=== PATIENT | male | born 1950 | race Caucasian/White ===

== ENCOUNTER 2016-06-06 01:03 | Emergency (ER) | payer BC, OTHER ==
[~2016-06-06] VITALS: Ht 188 cm; Wt 115.0 kg
[~2016-06-06 01:03] MED LIST: PRIN20TA2 PO; ZOCO10TA PO
[2016-06-06 01:10] VITALS: BP 178/89; PULSE 89; RESP 16; TEMP 98.2; O2SAT 96
[2016-06-06] MEDS ORDERED: LISI-590 PO (01:26)
[2016-06-06] MEDS ORDERED: ATEN50TA PO (01:26)
[2016-06-06] MEDS ORDERED: ASPIRIN 81 MG CHEW TAB PO ONE (01:30)
[2016-06-06] MEDS ORDERED: SODIUM CHLORIDE 0.9% FLUSH 5 ML FLUSH IVF PRN (01:30)
[2016-06-06 01:31] LABS: BASOPHIL # 0.4 TH/MM3 (0-0.2); BASOPHIL % 3.3 % (0.0-2.0); EOSINOPHIL # 0.2 TH/MM3 (0-0.4); EOSINOPHIL % 1.3 % (0.0-4.0); HEMATOCRIT 48.6 % (39.0-51.0); LYMPH % 15.3 % (9.0-44.0); MEAN CELL VOLUME 91.6 FL (80.0-100.0); MEAN CORPUSCULAR HEMOGLOBIN 30.3 PG (27.0-34.0); MEAN CORPUSCULAR HGB CONC 33.1 % (32.0-36.0); MONO % 10.1 % (0.0-8.0); PLATELET COUNT 166 TH/MM3 (150-450); RED CELL DISTRIBUTION WIDTH 13.3 % (11.6-17.2); WHITE BLOOD COUNT 12.9 TH/MM3 (4.0-11.0)
[2016-06-06 01:39] LABS: HEMO FLAGS DIFF FINAL
--- NOTE | 2016-06-06 01:40 | PD ---
HPI Chief Complaint: Chest Pain Time Seen by Provider: 01:13 Travel History International Travel<30 days: No Contact w/Intl Traveler<30days: No Traveled to known affect area: No History of Present Illness HPI The patient is a 66-year-old male with no known history of heart disease who complains of a sharp, pleuritic chest pain in the last 27 hours. The pain is located in the left anterior chest wall area. The pain is pleuritic, positional. He denies any fever, nausea, short of breath, diaphoresis or radiation of pain. He denies any hemoptysis. PFS Past Medical History High Cholesterol: Yes Diminished Hearing: No Hypertension: Yes ?: Not Past Surgical History Appendectomy: Yes Social History Alcohol Use: Yes Tobacco Use: No Substance Use: No Allergies-Medications (Allergen,Severity, Reaction): Coded Allergies: Augmentin (Verified Adverse Reaction, Mild, DIARRHEA, 09/05/11) Reported Meds & Prescriptions Reported Meds & Active Scripts Active Ibuprofen 800 Mg Tab 800 Mg PO TID Reported Zestril (Lisinopril) 10 Mg Tab 10 Mg PO DAILY Atenolol 50 Mg Tab 50 Mg PO BID Review of Systems Except as stated in HPI: all other systems reviewed are Neg Physical Exam Narrative GENERAL: The patient is alert, oriented 3 and slight apparent distress with his sharp, pleuritic chest pain. The blood pressure is 178/89 but the rest the vital signs are normal. SKIN: Warm and dry. No skin rash is noted. HEAD: Atraumatic. Normocephalic. EYES: Pupils equal and round. No scleral icterus. No injection or drainage. ENT: No nasal bleeding or discharge. Mucous membranes pink and moist. NECK: Trachea midline. No JVD. CARDIOVASCULAR: Regular rate and rhythm. No murmur appreciated. RESPIRATORY: No accessory muscle use. Clear to auscultation. Breath sounds equal bilaterally. I can reproduce the patient's pain by palpating the patient' s left anterior chest wall where he perceives the pain. The pain appears to be inside and pressing on the ribs only produces a slight amount of his pain. GASTROINTESTINAL: Abdomen soft, non-tender, nondistended. Hepatic and splenic margins not palpable. MUSCULOSKELETAL: No obvious deformities. No clubbing. No cyanosis. No edema. NEUROLOGICAL: Awake and alert. No obvious cranial nerve deficits. Motor grossly within normal limits. Normal speech. PSYCHIATRIC: Appropriate mood and affect; insight and judgment normal. Data Data Last Documented VS Vital Signs Date Time Temp Pulse Resp B/P Pulse Ox O2 Delivery O2 Flow Rate FiO2 06/06/16 01:58 78 16 165/80 98 Room Air 06/06/16 01:10 98.2 Orders Electrocardiogram (06/06/16 01:17) Ckmb (Isoenzyme) Profile (06/06/16 01:17) Complete Blood Count With Diff (06/06/16 01:17) Comprehensive Metabolic Panel (06/06/16 01:17) Magnesium (Mg) (06/06/16 01:17) Troponin I (06/06/16 01:17) Ecg Monitoring (06/06/16 01:17) Iv Access Insert/Monitor (06/06/16 01:17) Oximetry (06/06/16 01:17) Oxygen Administration (06/06/16 01:17) Aspirin Chew (Aspirin Chew) (06/06/16 01:30) Sodium Chloride 0.9% Flush (Ns Flush) (06/06/16 01:30) Chest, Pa & Lat (06/06/16 01:17) CKMB (06/06/16 01:46) CKMB% (06/06/16 01:46) Labs Laboratory Tests Test 06/06/16 06/06/16 01:20 01:46 White Blood Count 12.9 TH/MM3 Red Blood Count 5.30 MIL/MM3 Hemoglobin 16.1 GM/DL Hematocrit 48.6 % Mean Corpuscular Volume 91.6 FL Mean Corpuscular Hemoglobin 30.3 PG Mean Corpuscular Hemoglobin 33.1 % Concent Red Cell Distribution Width 13.3 % Platelet Count 166 TH/MM3 Mean Platelet Volume 9.0 FL Neutrophils (%) (Auto) 70.0 % Lymphocytes (%) (Auto) 15.3 % Monocytes (%) (Auto) 10.1 % Eosinophils (%) (Auto) 1.3 % Basophils (%) (Auto) 3.3 % Neutrophils # (Auto) 9.0 TH/MM3 Lymphocytes # (Auto) 2.0 TH/MM3 Monocytes # (Auto) 1.3 TH/MM3 Eosinophils # (Auto) 0.2 TH/MM3 Basophils # (Auto) 0.4 TH/MM3 CBC Comment DIFF FINAL Differential Comment Sodium Level 141 MEQ/L Potassium Level 3.9 MEQ/L Chloride Level 107 MEQ/L Carbon Dioxide Level 22.5 MEQ/L Anion Gap 12 MEQ/L Blood Urea Nitrogen 15 MG/DL Creatinine 1.30 MG/DL Estimat Glomerular Filtration 55 ML/MIN Rate Random Glucose 136 MG/DL Calcium Level 8.3 MG/DL Magnesium Level 2.0 MG/DL Total Bilirubin 0.8 MG/DL Aspartate Amino Transf 15 U/L (AST/SGOT) Alanine Aminotransferase 27 U/L (ALT/SGPT) Alkaline Phosphatase 93 U/L Total Creatine Kinase 211 U/L Creatine Kinase MB 2.1 NG/ML Troponin I LESS THAN 0.02 NG/ML Total Protein 7.1 GM/DL Albumin 3.5 GM/DL [facility] Medical Decision Making Medical Screen Exam Complete: Yes Emergency Medical Condition: Yes Medical Record Reviewed: Yes Interpretation(s) The EKG shows sinus rhythm with a rate of [address] elevation or depression. The CBC shows a white count 12,900 but is otherwise unremarkable. The complete metabolic profile shows a GFR of 55, glucose 136 and calcium 8.3 but is otherwise normal. The cardiac enzymes are normal. The chest x-ray shows bibasilar densities, left greater than right. Differential Diagnosis Acute coronary syndromeunlikely, pleurisy, esophageal pain, gastrointestinal pain, chest wall pain, chest pain etiology undetermined Narrative Course The patient appears to have bilateral pneumonitis. He was offered a stress test here but declined. He knows that his stress test that he had 5 years ago is out of date. He should go through [facility] and set up a stress test through them if he does not want to have it here. The bibasilar densities are exactly where the patient feels his pleuritic chest pain. Diagnosis Primary Impression: Pneumonitis Additional Impression: Pleurisy Additional Instructions: The Zithromax is one tablet daily for 5 days. Follow-up with Dr. Landon Bello this week or early next week. Med/Other Pt SpecificInfo: Prescription(s) given Scripts Azithromycin (Zithromax)500 Mg Cml092 Mg PO DAILY 5 Days Ref 0 Prov:Matt Constantino MD 06/06/16 Ibuprofen 800 Mg Bfr191 Mg PO TID #45 TAB Ref 0 Prov:Matt Constantino MD 06/06/16 Disposition: 01 DISCHARGE HOME Condition: Stable Matt Constantino MD Jun 06, 2016 01:40
[2016-06-06 01:58] VITALS: BP 165/80; PULSE 78; RESP 16; O2SAT 98
[2016-06-06 02:08] LABS: CHLORIDE 107 MEQ/L (98-107); POTASSIUM 3.9 MEQ/L (3.5-5.1); SODIUM (NA) 141 MEQ/L (136-145)
[2016-06-06 02:12] LABS: ANION GAP 12 MEQ/L (5-15); BICARBONATE 22.5 MEQ/L (21.0-32.0); BLOOD UREA NITROGEN 15 MG/DL (7-18)
[2016-06-06 02:15] LABS: ALT (GPT) 27 U/L (12-78); AST (GOT) 15 U/L (15-37); GLOMERULAR FILTRATION RATE 55 ML/MIN (>89)
[2016-06-06 02:17] LABS: TOTAL BILIRUBIN ADULT 0.8 MG/DL (0.2-1.0)
[2016-06-06 02:18] LABS: ALKALINE PHOSPHATASE 93 U/L (45-117); CREATINE KINASE 211 U/L (39-308)
[2016-06-06] MEDS ORDERED: IBUP800T23 PO (02:29)
--- NOTE | 2016-06-06 02:29 | RADHPO ---
EXAM DATE/TIME: 06/06/2016 02:02 [facility] COMPARISON: No previous studies available for comparison. INDICATIONS : Patient states left side chest tightness when he takes a breath. MEDICAL HISTORY : Hypertension. SURGICAL HISTORY : None. ENCOUNTER: Initial ACUITY: 2 days PAIN SCORE: 4/10 LOCATION: Bilateral chest FINDINGS: PA and lateral views of the chest demonstrate bibasilar densities. Heart normal in size. The cardiome diastinal contours are unremarkable. Osseous structures are intact. CONCLUSION: Bibasilar densities. Efren Austin MD on June 06, 2016 at 2:26 Board Certified Radiologist. This report was verified electronically.
[2016-06-06 02:30] LABS: CKMB 2.1 NG/ML (0.5-3.6)
[2016-06-06] MEDS ORDERED: ZITH500T PO (02:37)
[2016-06-06] MEDS ORDERED: AZITHROMYCIN 250 MG TAB PO ONE (02:45)
[2016-06-06] MEDS ORDERED: KETOROLAC TROMETHAMINE 60 MG/2 ML (IM) VIAL IVP ONE (02:45)
[2016-06-06 03:01] VITALS: BP 154/85
--- NOTE | 2016-06-06 09:44 | EKG ---
Date Performed: 06/06/2016 Time Performed: 01:14:34 PTAGE: 66 years EKG: Sinus rhythm Leftward axis Borderline ECG NO PREVIOUS TRACING DOCTOR: Vahid Rehman Interpretating Date/Time 06/06/2016 09:43:11
[2016-06-10] MEDS ORDERED: XARE15TA PO (11:27)
== END 2016-06-06 03:08 | disposition home or self-care (01) ==
LOC: PHED 01:03
DX: J18.9 Pneumonia, unspecified organism (principal); R09.1 Pleurisy
CPT/HCPCS: 71020; 80053; 82550; 82552; 83735; 84484; 85025; 93005; 96374; J1885

== ENCOUNTER 2016-06-07 01:24 | Inpatient (IN) | payer OTHER, MEDICARE ==
[2016-06-07] VITALS (11 sets, daily range): BP systolic 119–160; BP diastolic 63–86; PULSE 62–88; RESP 16–19; TEMP 97.8–98.8; O2SAT 91–98
[~2016-06-07] VITALS: Ht 188 cm; Wt 116.7 kg
[~2016-06-07 01:24] MED LIST changes: +ATEN50TA PO; +IBUP800T23 PO; +LISI-590 PO; -PRIN20TA2 PO; +ZITH500T PO; -ZOCO10TA PO
[2016-06-07] MEDS ORDERED: ASPIRIN 81 MG CHEW TAB PO ONE (01:45)
[2016-06-07] MEDS ORDERED: SODIUM CHLORIDE 0.9% FLUSH 5 ML FLUSH IVF PRN ×2 (01:45→03:45)
[2016-06-07] MEDS ORDERED: NITROGLYCERIN 2% OINT 1 GM PACKET TOPICAL ONE (01:45)
[2016-06-07 02:11] LABS: BASOPHIL # 0.1 TH/MM3 (0-0.2); BASOPHIL % 0.6 % (0.0-2.0); EOSINOPHIL % 0.3 % (0.0-4.0); HEMATOCRIT 46.6 % (39.0-51.0); HEMO FLAGS DIFF FINAL; LYMPH % 9.6 % (9.0-44.0); LYMPHOCYTE # 1.2 TH/MM3 (1.0-4.8); MEAN CELL VOLUME 91.1 FL (80.0-100.0); MEAN CORPUSCULAR HEMOGLOBIN 30.4 PG (27.0-34.0); MEAN CORPUSCULAR HGB CONC 33.4 % (32.0-36.0); MONO % 11.7 % (0.0-8.0); NEUT % 77.8 % (16.0-70.0); PLATELET COUNT 142 TH/MM3 (150-450); RED BLOOD COUNT 5.11 MIL/MM3 (4.50-5.90); RED CELL DISTRIBUTION WIDTH 13.7 % (11.6-17.2); WHITE BLOOD COUNT 12.9 TH/MM3 (4.0-11.0)
--- NOTE | 2016-06-07 02:17 | PD ---
HPI Chief Complaint: Chest Pain Time Seen by Provider: 01:27 Travel History International Travel<30 days: No Contact w/Intl Traveler<30days: No Traveled to known affect area: No History of Present Illness HPI The patient is a 66 year old male who presents to the [facility] emergency department with a history of left-sided chest pain that has been coming and going for the last 2 days. The patient reports that prior to developing the pain he was doing some lifting and moving of boxes, however he reports that he was using proper technique. He denies having any pain while moving the boxes themselves. He reports that it daily later he began to have discomfort in the left side of his chest. The patient reports that the pain is sharp in character. He reports that it is worse when he lies back. The patient was seen in the emergency department yesterday at [place]. The patient had a cardiac workup done that was unremarkable, however he was noted to have on his chest x-ray bibasilar densities, left greater than the right, therefore the patient was diagnosed with pneumonia and sent home with a prescription for ibuprofen for suspected pleurisy and days azithromycin. The patient reports that the pain became worse this evening. The patient reports that he does have a history of acid reflux. He reports that it has been slightly worse recently. 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 The patient reports that he also drinks alcohol daily. He reports that he drinks approximately 2 drinks per day. He denies any history of heart disease. He reports that he last had a stress test done 5 years ago. 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 The patient also reports having history of hypertension. The patient reports that over the last couple of days he has felt like he's had a low-grade fever. He denies having any cough or congestion. He reports that his chest pain is worse with activity. He reports that he had diaphoresis prior to arrival with it. He denies having any nausea. He denies feeling short of breath, however he reports that he is splinting his breathing as when he takes a deep breath the pain occurs in the left side. The patient denies any history of neck pain, abdominal pain, vomiting, diarrhea, urinary symptoms, or neurologic symptoms. [facility] Past Medical History Narrative Medical The patient's past medical history significant for hyperlipidemia, hypertension. High Cholesterol: Yes Diminished Hearing: No Hypertension: Yes Pneumonia: Yes Tetanus Vaccination: Unknown Influenza Vaccination: Yes Past Surgical History Narrative Surgical Patient's past surgical history is significant for an appendectomy, skin cancer resection. Appendectomy: Yes Oral Surgery: Yes Social History Alcohol Use: Yes Tobacco Use: No Substance Use: No Allergies-Medications (Allergen,Severity, Reaction): Coded Allergies: Augmentin (Verified Adverse Reaction, Mild, DIARRHEA, 06/07/16) Reported Meds & Prescriptions Reported Meds & Active Scripts Active Zithromax (Azithromycin) 500 Mg Tab 500 Mg PO DAILY 5 Days Ibuprofen 800 Mg Tab 800 Mg PO TID Reported Zestril (Lisinopril) 10 Mg Tab 10 Mg PO DAILY Atenolol 50 Mg Tab 50 Mg PO BID Review of Systems General / Constitutional: No: Fever Eyes: No: Visual changes HENT: No: Headaches Cardiovascular: Positive: Chest Pain or Discomfort, Diaphoresis, Dyspnea on exertion Respiratory: Positive: Shortness of Breath Gastrointestinal: No: Nausea, Vomiting, Abdominal Pain Genitourinary: No: Dysuria Musculoskeletal: Positive: Myalgias, Pain Skin: No Rash Neurologic: No: Weakness Psychiatric: No: Depression Endocrine: No: Polydipsia Hematologic/Lymphatic: No: Easy Bruising Physical Exam Narrative General: The patient is a well-developed well-nourished male in no acute distress. Head and Neck exam: Head is normocephalic atraumatic. Eyes: Pupils are equal round and reactive to light. Nose: Midline septum with pink mucous membranes Mouth: Dentition unremarkable. Moist mucus membranes. Posterior oropharynx is not erythematous. No tonsillar hypertrophy. Uvula midline. Airway patent. Neck: No palpable lymphadenopathy. No nuchal rigidity. No thyromegaly. Cardiovascular: Regular rate and rhythm without murmurs, gallops, or rubs. Lungs: Clear to auscultation bilaterally. No wheezes, rhonchi, or rales. No chest wall tenderness on palpation. Abdomen: Soft, without tenderness to palpation in all 4 quadrants of the abdomen. No guarding, rebound, or rigidity. Normal bowel sounds are audible. Extremities: No clubbing, cyanosis, or edema. 2+ pulses in all 4 extremities. No calf tenderness on palpation. Back: No spinous process tenderness to palpation. No costovertebral angle tenderness to palpation. Neurologic Exam: Grossly nonfocal. Skin Exam: No rash noted. Intact skin that is warm and dry. Data Data Last Documented VS Vital Signs Date Time Temp Pulse Resp B/P Pulse Ox O2 Delivery O2 Flow Rate FiO2 06/07/16 02:00 83 18 160/86 93 Nasal Cannula 3 06/07/16 01:25 98.8 Orders Electrocardiogram (06/07/16 01:43) Basic Metabolic Panel (Bmp) (06/07/16 01:43) B-Type Natriuretic Peptide (06/07/16 01:43) Ckmb (Isoenzyme) Profile (06/07/16 01:43) Complete Blood Count With Diff (06/07/16 01:43) Magnesium (Mg) (06/07/16 01:43) Prothrombin Time / Inr (Pt) (06/07/16 01:43) Act Partial Throm Time (Ptt) (06/07/16 01:43) Troponin I (06/07/16 01:43) Lipase (06/07/16 01:43) Chest, Single Ap (06/07/16 01:43) Ecg Monitoring (06/07/16 01:43) Bilateral Bp Monitoring (06/07/16 01:43) Iv Access Insert/Monitor (06/07/16 01:43) Oximetry (06/07/16 01:43) Oxygen Administration (06/07/16 01:43) Aspirin Chew (Aspirin Chew) (06/07/16 01:45) Sodium Chloride 0.9% Flush (Ns Flush) (06/07/16 01:45) Nitroglycerin 2% Oint (Nitroglycerin 2% (06/07/16 01:45) CKMB (06/07/16 01:35) CKMB% (06/07/16 01:35) Ct Pulmonary Angiogram (06/07/16 02:33) Sodium Chlorid 0.9% 500 Ml Inj (Ns 500 M (06/07/16 02:45) Pantoprazole Inj (Protonix Inj) (06/07/16 02:45) Iohexol 350 Inj (Omnipaque 350 Inj) (06/07/16 02:51) Blood Culture (06/07/16 02:57) Lactic Acid Sepsis Protocol (06/07/16 02:57) Morphine Inj (Morphine Inj) (06/07/16 03:15) Ondansetron Inj (Zofran Inj) (06/07/16 03:15) Heparin Infusion TIO.Q1H (06/07/16 03:16) Heparin Inj (Heparin Inj) (06/07/16 03:30) Heparin-D5w Inj (Heparin-D5w Inj) (06/07/16 03:30) Cbc No Diff, Includes Plts (06/10/16 06:00) Act Partial Throm Time (Ptt) (06/07/16 10:16) Occult Blood (Hemoccult) Stool (06/07/16 03:16) Admit Order (Ed Use Only) (06/07/16 03:36) ^ Data Governance Consultant / Telemetry (06/07/16 03:36) Vital Signs (Adult) Q4H (06/07/16 03:36) Diet Heart Healthy (06/07/16 Breakfast) Activity Bed Rest (06/07/16 03:36) Complete Blood Count With Diff (06/08/16 06:00) Basic Metabolic Panel (Bmp) (06/08/16 06:00) Creatine Kinase (Cpk) (06/07/16 06:30) Creatine Kinase (Cpk) (06/07/16 12:30) Troponin I (06/07/16 06:30) Troponin I (06/07/16 12:30) Electrocardiogram (06/07/16 06:30) Electrocardiogram (06/07/16 12:30) ^ Notify Dr: Other (06/07/16 03:36) ^ Saline Lock (06/07/16 03:36) Resp Oxygen Amado C Titrat 1-4 L (06/07/16 ) ^ Notify Dr: Other (06/07/16 03:36) Sodium Chloride 0.9% Flush (Ns Flush) (06/07/16 09:00) Sodium Chloride 0.9% Flush (Ns Flush) (06/07/16 03:45) Labs Laboratory Tests Test 06/07/16 06/07/16 01:35 03:10 White Blood Count 12.9 TH/MM3 Red Blood Count 5.11 MIL/MM3 Hemoglobin 15.5 GM/DL Hematocrit 46.6 % Mean Corpuscular Volume 91.1 FL Mean Corpuscular Hemoglobin 30.4 PG Mean Corpuscular Hemoglobin 33.4 % Concent Red Cell Distribution Width 13.7 % Platelet Count 142 TH/MM3 Mean Platelet Volume 8.9 FL Neutrophils (%) (Auto) 77.8 % Lymphocytes (%) (Auto) 9.6 % Monocytes (%) (Auto) 11.7 % Eosinophils (%) (Auto) 0.3 % Basophils (%) (Auto) 0.6 % Neutrophils # (Auto) 10.0 TH/MM3 Lymphocytes # (Auto) 1.2 TH/MM3 Monocytes # (Auto) 1.5 TH/MM3 Eosinophils # (Auto) 0.0 TH/MM3 Basophils # (Auto) 0.1 TH/MM3 CBC Comment DIFF FINAL Differential Comment Prothrombin Time 10.7 SEC Prothromb Time International 1.0 RATIO Ratio Activated Partial 27.5 SEC Thromboplast Time Sodium Level 140 MEQ/L Potassium Level 4.1 MEQ/L Chloride Level 108 MEQ/L Carbon Dioxide Level 26.4 MEQ/L Anion Gap 6 MEQ/L Blood Urea Nitrogen 27 MG/DL Creatinine 1.45 MG/DL Estimat Glomerular Filtration 49 ML/MIN Rate Random Glucose 130 MG/DL Calcium Level 8.9 MG/DL Magnesium Level 2.1 MG/DL Total Creatine Kinase 254 U/L Creatine Kinase MB 3.1 NG/ML Troponin I LESS THAN 0.02 NG/ML B-Type Natriuretic Peptide 26 PG/ML Lipase 158 U/L Lactic Acid Level 1.7 mmol/L MDM Medical Decision Making Medical Screen Exam Complete: Yes Emergency Medical Condition: Yes Medical Record Reviewed: Yes Interpretation(s) Last Impressions CT Angiography 06/07/16 0233 Signed Impressions: Service Date/Time: Tuesday, June 07, 2016 02:49 - CONCLUSION: 1. Minimal filling defect right lower lobe consistent with small pulmonary embolus. 2. Bibasilar and lingular scattered patchy opacities. 3. Coronary artery calcifications. Efren Austin MD Chest X-Ray 06/07/16 0143 Signed Impressions: Service Date/Time: Tuesday, June 07, 2016 01:58 - CONCLUSION: No acute disease. Efren Austin MD Differential Diagnosis Pulmonary embolism, versus pneumonia, versus pleurisy, versus musculoskeletal strain, versus acid reflux, versus acute coronary syndrome Narrative Course During the course of the patients emergency department visit, the patients history, examination, and differential diagnosis were reviewed with the patient. The patient had IV access obtained and blood work sent for analysis. The patient was placed on a instrumentation supervisor with oximetry and blood pressure monitoring. An EKG was done on arrival. The patient's EKG shows a sinus rhythm heart rate of 84, no acute ST segment changes are noted. T waves are inverted in lead 3, voltage criteria are met for LVH. A chest x-ray was ordered. CTA to rule out PE was ordered. The patient was provided supplemental oxygen at 2 L nasal cannula due to the patient's O2 saturation on room air being 91%. The patients laboratory studies were reviewed and remarkable for a white count of 12.9, hemoglobin 15.5, platelets 142, neutrophils 77.8, CMP is remarkable for chloride of 108, BUN 27, creatinine 1.5, glucose 130, initial set of cardiac enzymes are negative, BNP is 26, lipase 158, PT PTT unremarkable. Radiology studies were reviewed and remarkable for a chest x-ray that shows no acute disease. CTA reveals a minimal feeling defect in the right lower lobe consistent with a small pulmonary embolism, bibasilar and lingular scattered patchy opacities, coronary artery occasions are noted. The patient was started on a heparin drip. The patients results were discussed with the patient, including the plan of care. I explained that further testing and/ or monitoring is indicated based on the patients history, examination, and/ or laboratory findings. Therefore, I recommended admission for additional evaluation. The patient expressed understanding and was agreeable with this plan. The patient was admitted to the hospital in stable condition and sent to a bed under the care of of the [facility] hospitalist service. Physician Communication Physician Communication The patient's case was discussed with Dr. Tatum who did agree to admit the patient for further evaluation and treatment at this time. Diagnosis Primary Impression: Atypical chest pain Additional Impression: Pulmonary embolism Qualified Code: I26.99 - Other acute pulmonary embolism without acute cor pulmonale Admitting Information Admitting Physician Requests: Pretty Cortes MD Jun 07, 2016 02:17
[2016-06-07 02:22] LABS: APTT (PATIENT) 27.5 SEC (24.3-30.1); PROTHROMBIN TIME - PATIENT 10.7 SEC (9.8-11.6)
[2016-06-07 02:29] LABS: CREATINE KINASE 254 U/L (39-308)
[2016-06-07 02:30] LABS: ANION GAP 6 MEQ/L (5-15); BICARBONATE 26.4 MEQ/L (21.0-32.0); BLOOD UREA NITROGEN 27 MG/DL (7-18); CHLORIDE 108 MEQ/L (98-107); GLOMERULAR FILTRATION RATE 49 ML/MIN (>89); MAGNESIUM 2.1 MG/DL (1.5-2.5); POTASSIUM 4.1 MEQ/L (3.5-5.1); SODIUM (NA) 140 MEQ/L (136-145)
[2016-06-07 02:41] LABS: CKMB 3.1 NG/ML (0.5-3.6)
[2016-06-07] MEDS ORDERED: SODIUM CHLORID 0.9% 500 ML INJ 500 ML IV ONE (02:45)
[2016-06-07] MEDS ORDERED: PANTOPRAZOLE SODIUM 40 MG VIAL IV PUSH ONE (02:45)
[2016-06-07] MEDS ORDERED: IOHEXOL 350 MG/ML 10 ML VIAL (for RAD DIAG) IV ONE (02:51)
--- NOTE | 2016-06-07 03:05 | RADRPT ---
EXAM DATE/TIME: 06/07/2016 02:49 [facility] COMPARISON: No previous studies available for comparison. INDICATIONS : Left sided chest pain. IV CONTRAST: 74 cc Omnipaque 350 (iohexol) IV RADIATION DOSE: 23.38 CTDIvol (mGy) MEDICAL HISTORY : Hypertension. SURGICAL HISTORY : Appendectomy. ENCOUNTER: Initial ACUITY: 1 day PAIN SCALE: 7/10 LOCATION: Left chest TECHNIQUE: Volumetric scanning of the chest was performed using a pulmonary embolism protocol MIP images were re constructed. Using automated exposure control and adjustment of the mA and/or kV according to patien t size, radiation dose was kept as low as reasonably achievable to obtain optimal diagnostic quality images. FINDINGS: PULMONARY ARTERIES: Minimal filling defect within the right lower lobe branch. No filling defects are seen in the pulmona ry arteries through the segmental level on the left. LUNGS: Bibasilar patchy densities and lingular densities. There is no consolidation or pneumothorax . No co ncerning pulmonary nodule is visualized. PLEURAE: There is no pleural thickening or pleural effusion. MEDIASTINUM: There is good visualization of the great vessels of the middle mediastinum. No evidence of mediastin al or hilar adenopathy/mass. Coronary artery calcifications. MUSCULOSKELETAL: Within normal limits for patient age. MISCELLANEOUS: The visualized upper abdominal organs demonstrate no acute abnormality. CONCLUSION: 1. Minimal filling defect right lower lobe consistent with small pulmonary embolus. 2. Bibasilar and lingular scattered patchy opacities. 3. Coronary artery calcifications. Efren Austin MD on June 07, 2016 at 3:02 Board Certified Radiologist. This report was verified electronically.
--- NOTE | 2016-06-07 03:06 | RADRPT ---
EXAM DATE/TIME: 06/07/2016 01:58 [facility] COMPARISON: No previous studies available for comparison. INDICATIONS : Chest pain. MEDICAL HISTORY : Hypertension. SURGICAL HISTORY : None. ENCOUNTER: Initial ACUITY: 3 days PAIN SCORE: 4/10 LOCATION: Bilateral chest FINDINGS: A single view of the chest demonstrates diminished lung volumes without evidence of mass, infiltrate or effusion. The cardiomediastinal contours are unremarkable. Osseous structures are intact. CONCLUSION: No acute disease. Efren Austin MD on June 07, 2016 at 3:04 Board Certified Radiologist. This report was verified electronically.
[2016-06-07] MEDS ORDERED: MORPHINE SULFATE 4 MG/ML INJ IV PUSH ONE (03:15)
[2016-06-07] MEDS ORDERED: ONDANSETRON HCL 4 MG/2 ML VIAL IV PUSH ONE (03:15)
[2016-06-07] MEDS ORDERED: HEPARIN-D5W INJ 250 ML IV SCH (03:30)
[2016-06-07] MEDS ORDERED: HEPARIN SODIUM - IV 10,000 UNITS/10 ML VIAL IV ONE (03:30)
[2016-06-07 07:06] LABS: CREATINE KINASE 190 U/L (39-308)
[2016-06-07] MEDS: SODIUM CHLORIDE 0.9% FLUSH 5 ML FLUSH IVF SCH ×2 (07:13→21:13)
--- NOTE | 2016-06-07 11:16 | RADRPT ---
EXAM DATE/TIME: 06/07/2016 10:26 [facility] COMPARISON: No previous studies available for comparison. INDICATIONS : Pulmonary embolism. MEDICAL HISTORY : Hypercholesterolemia. Hypertension. Pneumonia. SURGICAL HISTORY : Appendectomy. ENCOUNTER: Initial ACUITY: 1 day PAIN SCORE: 0/10 LOCATION: Bilateral legs. TECHNIQUE: Venous ultrasound of the left and right leg was performed from the inguinal ligament to the proximal calf. Real-time, color Doppler and spectral tracing, compression and augmentation techniques were us ed. FINDINGS: RIGHT LEG: There is normal compressibility of the deep venous system from the inguinal region to the proximal ca lf. No echogenic clot is seen in the lumen of the common femoral, femoral, popliteal, and posterior tibial veins. There is a normal response of the venous system to proximal and distal augmentation an d respiration. LEFT LEG: There is normal compressibility of the deep venous system from the inguinal region to the proximal ca lf. No echogenic clot is seen in the lumen of the common femoral, femoral, popliteal, and posterior tibial veins. There is a normal response of the venous system to proximal and distal augmentation an d respiration. CONCLUSION: No evidence of deep venous thrombosis within the lower extremities. Jag Mcmahon MD on June 07, 2016 at 11:14 Board Certified Radiologist. This report was verified electronically.
[2016-06-07 11:24] LABS: APTT (PATIENT) GREATER THAN 153.4 SEC (24.3-30.1)
--- NOTE | 2016-06-07 11:45 | HHI.HP ---
HPI Service [facility] Hospitalists Primary Care Physician Landon Bello Admission Diagnosis pulmonary embolism Chief Complaint: Pleuritic chest pain Travel History International Travel<30 Days: No Contact w/Intl Traveler <30 Da: No Traveled to Known Affected Are: No History of Present Illness Mr. Smith is a pleasant 66 y/o WM with HTN, hyperlipidemia, pre-diabetes, CKD stage 3, and GERD. Pt presented to the ER at [facility] on 06/07/16 with complaints of left-sided chest pain that has been coming and going for the last 2 days. The patient reports that prior to developing the pain he was doing some lifting and moving of boxes, however he reports that he was using proper technique. He denies having any pain while moving the boxes themselves. He reports that it began about a day or so later that he noticed the discomfort in the left side of his chest. He describes this as a sharp pain in the left chest which is worse with inspiration or cough. The patient was seen in the ER at [facility] on 06/06. EKG at that time noted sinus rhythm with a rate of 87, no acute ST elevation or depression. The CBC noted WBC count 12.9. The cardiac enzymes were normal. The CXR (06/06) noted bibasilar densities. The patient was diagnosed with pneumonia and sent home with a prescription for ibuprofen and Azithromycin. He reports that last night the pain significantly worsened and this prompted his return to the ER at [facility]. He denies any history of CAD. He reports that he last had a stress test was in 2010 and was negative. Repeat CXR on 06/07 noted no acute disease, diminished lung volumes without evidence of mass , infiltrate or effusion. CTA (06/07) noted minimal filling defect in the right lower lobe consistent with small pulmonary embolus, bibasilar and lingular scattered patchy opacities and coronary artery calcifications. The pt has been started on a Heparin gtt. 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 He also was more sedentary over his [place] break due to issues with neuropathy in the feet. He denies any recent travel. Denies any hx of malignancy. He denies having any cough or congestion. He reports that his chest pain is worse with activity. He denies having any nausea. He denies feeling short of breath, however he reports that he is splinting his breathing as when he takes a deep breath the pain occurs in the left side. The patient denies any history of neck pain, abdominal pain, vomiting, diarrhea, urinary symptoms, or neurologic symptoms. Review of Systems Constitutional: DENIES: Fever, Weight gain, Weight loss, Chills, Night Sweats Eyes: DENIES: Vision loss Ears, nose, mouth, throat: DENIES: Hearing loss Respiratory: COMPLAINS OF: Shortness of breath, DENIES: Cough Cardiovascular: COMPLAINS OF: Chest pain, DENIES: Palpitations, Lower Extremity Edema Gastrointestinal: DENIES: Abdominal pain, Diarrhea, Nausea, Vomiting Genitourinary: DENIES: Hematuria, Dysuria Musculoskeletal: DENIES: Back pain Integumentary: DENIES: Rash Neurologic: DENIES: Headache, Paresthesias Psychiatric: DENIES: Confusion Past Family Social History Past Medical History HTN Hyperlipidemia Pre-diabetes CKD, stage 3 GERD Obesity ALEJANDRO on CPAP Peripheral neuropathy Past Surgical History Appendectomy as a child Reported Medications Zithromax (Azithromycin) 500 Mg Tab 500 Mg PO DAILY 5 Days Ibuprofen 800 Mg Tab 800 Mg PO TID Zestril (Lisinopril) 10 Mg Tab 10 Mg PO DAILY Atenolol 50 Mg Tab 50 Mg PO BID Allergies: Coded Allergies: Augmentin (Verified Adverse Reaction, Mild, DIARRHEA, 06/07/16) Family History Mother in her 50's form CAD/HI Social History (+)Daily alcohol use, 2-3 beers per day for the last 4-5 years (+)Occasional tobacco use, smokes cigars periodically Denies any illicit drug use 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 Physical Exam Vital Signs Vital Signs Date Time Temp Pulse Resp B/P Pulse Ox O2 Delivery O2 Flow Rate FiO2 06/07/16 07:50 76 18 96 Room Air 3 06/07/16 07:50 96 Nasal Cannula 3 06/07/16 07:50 18 96 Nasal Cannula 3 06/07/16 07:50 97.8 76 18 139/81 96 Nasal Cannula 3 06/07/16 07:00 18 06/07/16 06:00 82 18 137/75 92 Room Air 06/07/16 05:00 81 18 119/72 92 Nasal Cannula 3 06/07/16 04:00 88 18 134/75 92 Nasal Cannula 3 06/07/16 02:00 83 18 160/86 93 Nasal Cannula 3 06/07/16 01:30 93 Nasal Cannula 2 06/07/16 01:30 91 Room Air 06/07/16 01:25 98.8 86 16 134/77 91 Physical Exam GENERAL: This is a well-nourished, well-developed patient, in no apparent distress. HEENT: Atraumatic. Normocephalic. No temporal or scalp tenderness. No scleral icterus. Airway patent. NECK: Trachea midline, supple, nontender CARDIO: Regular. RESP: CTA bilaterally. No wheezes, rales, or rhonchi. ABD: +BS, soft, non-tender, nondistended. EXT: Extremities without clubbing, cyanosis, or edema. Negative Homans sign bilaterally. NEURO: Awake and alert. Motor and sensory grossly within normal limits. Normal speech. Laboratory Laboratory Tests Test 06/07/16 06/07/16 06/07/16 01:35 03:10 06:20 White Blood Count 12.9 Red Blood Count 5.11 Hemoglobin 15.5 Hematocrit 46.6 Mean Corpuscular Volume 91.1 Mean Corpuscular Hemoglobin 30.4 Mean Corpuscular Hemoglobin 33.4 Concent Red Cell Distribution Width 13.7 Platelet Count 142 Mean Platelet Volume 8.9 Neutrophils (%) (Auto) 77.8 Lymphocytes (%) (Auto) 9.6 Monocytes (%) (Auto) 11.7 Eosinophils (%) (Auto) 0.3 Basophils (%) (Auto) 0.6 Neutrophils # (Auto) 10.0 Lymphocytes # (Auto) 1.2 Monocytes # (Auto) 1.5 Eosinophils # (Auto) 0.0 Basophils # (Auto) 0.1 CBC Comment DIFF FINAL Differential Comment Prothrombin Time 10.7 Prothromb Time International 1.0 Ratio Activated Partial 27.5 Thromboplast Time Sodium Level 140 Potassium Level 4.1 Chloride Level 108 Carbon Dioxide Level 26.4 Anion Gap 6 Blood Urea Nitrogen 27 Creatinine 1.45 Estimat Glomerular Filtration 49 Rate Random Glucose 130 Calcium Level 8.9 Magnesium Level 2.1 Total Creatine Kinase 254 190 Creatine Kinase MB 3.1 Troponin I LESS THAN 0.02 LESS THAN 0.02 B-Type Natriuretic Peptide 26 Lipase 158 Lactic Acid Level 1.7 Date/Time Procedure Status Source Growth 06/07/16 03:10 Aerobic Blood Culture Received Blood Peripheral Pending 1/10/17 03:10 Anaerobic Blood Culture Received Blood Peripheral Pending Result Diagram: 06/07/165 06/07/[address] Angiography 06/07/16232 Signed Impressions: Service Date/Time: Tuesday, June 07, 2016 02:49 - CONCLUSION: 1. Minimal filling defect right lower lobe consistent with small pulmonary embolus. 2. Bibasilar and lingular scattered patchy opacities. 3. Coronary artery calcifications. Efren Austin MD Chest X-Ray 06/07/16142 Signed Impressions: Service Date/Time: Tuesday, June 07, 2016 01:58 - CONCLUSION: No acute disease. Efren Austin MD Septic Shock Reassessment Heart: Regular rate and rhythm Lungs: Clear Skin: Warm Peripheral Pulses: Bounding Right Radial Bounding Left Radial Bounding Right Popliteal Bounding Left Popliteal Bounding Right Dorsalis Pedis Bounding Left Dorsalis Pedis Bounding Right Posterior Tibial Bounding Left Posterior Tibial Capillary Refill: <2 seconds Assessment and Plan Problem List: (1) Pulmonary embolism Status: Acute Plan: - Pt admitted with worsening pleuritic left sided chest pain for the last 2-3 days. - CTA (06/07) --> Minimal filling defect right lower lobe consistent with small pulmonary embolus. Bibasilar and lingular scattered patchy opacities. Coronary artery calcifications. - Etiology unclear, may be secondary to more sedentary lifestyle. No hx of malignancy. No recent weight loss or other constitutional symptoms. - Pt has been started on Heparin gtt per protocol - He is on 3L via NC - Check LE US - Check 2D echo - Pt will need to be started on anticoagulation - Supportive care - DVT prophylaxis (2) HTN (hypertension) Status: Chronic Plan: - Resume home meds (3) CKD (chronic kidney disease) stage 3, GFR 30-59 ml/min Status: Chronic Plan: - Slightly worse than baseline - Encourage oral intake - Recheck in AM (4) Pre-diabetes Status: Chronic Plan: - NovoLog SSI - Accu checks (5) Hyperlipidemia Status: Chronic Assessment and Plan Patient examined. Assessment and plan formulated with Viry Quinteros PA-C. I agree with the above. Pt pain is over left lateral chest wall to palpation but left ant chest wall with inspiration and mvmt. His CT chest suggest infiltrate left lingula and bases. partially could be atelectasis but also concern for areas of pna and pleuritic pains. small right lung filling defect which doesn't seem to correlate to his presenting sx's I would try solumedrol for pleurisy, abx for the infiltrate and inc spirometer. I discussed with Dr Nolan to give opinion if we need to commit this pt to anticoagulation or note for the filling defect. family agrees. he is currently on heparin. some ivf overnight for rise in bun/cr. If down in AM then d/c it. Physician Certification 2 Midnight Certification Type: Admission for Inpatient Services Order for Inpatient Services The services are ordered in accordance with Medicare regulations or non- Medicare payer requirements, as applicable. In the case of services not specified as inpatient-only, they are appropriately provided as inpatient services in accordance with the 2-midnight benchmark. Estimated LOS (days): 2 2 days is the estimated time the patient will need to remain in the hospital, assuming treatment plan goals are met and no additional complications. Post-Hospital Plan: Home Problem Qualifiers (1) Pulmonary embolism: Qualified Code: I26.99 - Other acute pulmonary embolism without acute cor pulmonale Viry Quinteros Jun 07, 2016 11:45 Lauri Madsen MD Jun 07, 2016 21:25
[2016-06-07] MEDS: ATENOLOL 50 MG TAB PO SCH ×2 (12:25→21:13)
[2016-06-07] MEDS ORDERED: ACETAMINOPHEN/HYDROcodone 325 MG/5 MG TAB PO PRN (12:45)
[2016-06-07] MEDS: MORPHINE SULFATE 4 MG/ML INJ IV PUSH PRN ×3 (13:14→21:14)
[2016-06-07 13:16] LABS: CREATINE KINASE 163 U/L (39-308)
--- NOTE | 2016-06-07 14:02 | EKG ---
Date Performed: 06/07/2016 Time Performed: 01:26:11 PTAGE: 66 years EKG: Sinus rhythm VOLTAGE CRITERIA FOR LVH ABNORMAL ECG Since PREVIOUS TRACING , no significant change noted PREVIOUS TRACIN06/06/2016 01.14 DOCTOR: Max Jane Interpretating Date/Time 06/07/2016 13:58:36
--- NOTE | 2016-06-07 14:02 | EKG ---
Date Performed: 06/07/2016 Time Performed: 06:04:56 PTAGE: 66 years EKG: Sinus rhythm VOLTAGE CRITERIA FOR LVH ABNORMAL ECG Since PREVIOUS TRACING , no significant change noted PREVIOUS TRACIN06/06/2016 01.14 DOCTOR: Max Jane Interpretating Date/Time 06/07/2016 13:58:01
[2016-06-07 17:51] LABS: APTT (PATIENT) 25.7 SEC (24.3-30.1)
[2016-06-07] MEDS ORDERED: methylPREDNISolone SOD SUCC 125 MG/2 ML VIAL IV PUSH ONE (20:00)
--- NOTE | 2016-06-07 20:45 | MB ---
cc: OVIDIO CARR DATE OF CONSULTATION 06/07/[address] Madsen. REASON FOR CONSULTATION Lung infiltrate and possible pulmonary embolism. HISTORY OF PRESENT ILLNESS Mr. Smith is a pleasant 66-year-old white male with history of hypertension, obstructive sleep apnea and prediabetic. He had left-sided chest pain about three days ago. He has cough and congestion. No fever. He was seen at [facility]. He had a chest x-ray done which shows basal infiltrate. He was given antibiotic. He did feel better but the next day he started having pain again. His pain is more like pleuritic in nature and worse when he takes a deep breath. The pain is only on the left side of the chest. With these symptoms, he came back to the hospital. He had a CTA of the chest done. It shows small right lower lobe filling defect consistent with pulmonary embolism. He has bibasilar lingula and scattered patchy opacities. His CBC showed WBC count 12.9, hemoglobin 15.5, hematocrit 46.6, MCV 91, platelet count 142. Sodium 140, potassium 4.1, chloride 108, CO2 26, BUN 27, creatinine 1.45. PAST MEDICAL HISTORY 1. History of hypertension 2. Prediabetic 3. Sleep apnea, 4. Obesity, 5. Gastroesophageal reflux disease 6. Skin cancers 7. History of appendectomy. MEDICATIONS Currently taking 1. Solu-Medrol 60 mg q. 6-hour. 2. Lisinopril 10 mg a day. 3. Levaquin 500 mg a day 4. Atenolol 50 mg a day 5. IV Heparin ALLERGIES AUGMENTIN SOCIAL HISTORY He is . 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 He has no history of smoking. Drinks socially. FAMILY HISTORY He has two children. REVIEW OF SYSTEMS He is up, around and active. Weight is stable. No headache or dizziness. No DVT or pulmonary embolism. No bleeding from any site. No family history of bleeding disorder or clotting disorder. PHYSICAL EXAMINATION GENERAL: Well-built, well-nourished male not in acute distress. VITAL SIGNS: Blood pressure is 131/69, heart rate 70, respirations 16, temperature 97.9 HEENT: Pupils are equal and reactive to light. Oral mucosa and nasal mucosa normal. NECK: Supple. JVP not raised. CHEST: Equal bilaterally. No rhonchi. CARDIOVASCULAR: S1, S2 normal. ABDOMEN: Benign. EXTREMITIES: No edema. IMPRESSION 1. Bibasilar lung infiltrates 2. Pleuritic chest pain. 3. Very small filling defect in the right lung incidental finding 4. Possible pulmonary embolism. He has no DVT. No risk factor. 5. Hypertension 6. Chronic kidney disease 7. Obstructive sleep apnea. PLAN I discussed with the patient and his family. Currently he is on IV heparin. It is difficult to say the pulmonary embolism is real. He does not have any DVT and no risk factor. I will check his D-dimer. If the D-dimer is also negative then we will consider whether we need to continue anticoagulation for at least three months and if not we will discontinue antibiotics and continue antibiotic and pain control. Supplemental oxygen. Further treatment will depend on the course in the hospital. I discussed patient's condition with his family at the bedside. Thank you, Dr. Madsen, for this consultation. MD CAMILLA Nixon/ /7:46 PM /8:22 PM
[2016-06-07] MEDS ORDERED: ATENOLOL 50 MG TAB PO SCH (21:00)
[2016-06-07] MEDS: LEVOFLOXACIN 500 MG PREMIX INJ 100 ML IV SCH (21:12)
[2016-06-07] MEDS: SODIUM CHLOR 0.9% 1000 ML INJ 1,000 ML IV SCH (21:12)
[2016-06-08] VITALS (12 sets, daily range): BP systolic 118–175; BP diastolic 52–82; PULSE 56–87; RESP 16–18; TEMP 98.2–98.9; O2SAT 91–94
[2016-06-08] MEDS: methylPREDNISolone SOD SUCC 125 MG/2 ML VIAL IV PUSH SCH ×3 (00:57→12:01)
[2016-06-08 03:09] LABS: APTT (PATIENT) GREATER THAN 153.4 SEC (24.3-30.1)
[2016-06-08 04:58] LABS: APTT (PATIENT) 30.1 SEC (24.3-30.1)
[2016-06-08 05:21] LABS: AUTOMATED NEUTROPHIL # 7.9 TH/MM3 (1.8-7.7); BASOPHIL % 0.3 % (0.0-2.0); HEMATOCRIT 44.7 % (39.0-51.0); HEMO FLAGS DIFF FINAL; LYMPH % 13.6 % (9.0-44.0); LYMPHOCYTE # 1.3 TH/MM3 (1.0-4.8); MEAN CELL VOLUME 93.4 FL (80.0-100.0); MEAN CORPUSCULAR HGB CONC 33.2 % (32.0-36.0); MONO % 1.3 % (0.0-8.0); NEUT % 84.8 % (16.0-70.0); PLATELET COUNT 156 TH/MM3 (150-450); RED BLOOD COUNT 4.79 MIL/MM3 (4.50-5.90); RED CELL DISTRIBUTION WIDTH 13.7 % (11.6-17.2); WHITE BLOOD COUNT 9.3 TH/MM3 (4.0-11.0)
[2016-06-08 05:47] LABS: BICARBONATE 23.4 MEQ/L (21.0-32.0)
[2016-06-08 05:52] LABS: POTASSIUM 4.3 MEQ/L (3.5-5.1)
[2016-06-08] MEDS: LISINOPRIL 10 MG TAB PO SCH (08:59)
[2016-06-08] MEDS: ATENOLOL 50 MG TAB PO SCH ×2 (08:59→20:14)
[2016-06-08] MEDS: SODIUM CHLORIDE 0.9% FLUSH 5 ML FLUSH IVF SCH ×2 (09:00→21:00)
[2016-06-08] MEDS: SODIUM CHLOR 0.9% 1000 ML INJ 1,000 ML IV SCH ×2 (09:33→23:51)
--- NOTE | 2016-06-08 10:53 | HHI.PR ---
Subjective Remarks Pt reports that his pleuritic chest pain is improved today and he is able to take deep breaths without any chest pain. He states that he does have some vague left shoulder pain when he takes a deep breath but nothing as bad as it was before. Objective Vitals Vital Signs Date Time Temp Pulse Resp B/P Pulse Ox O2 Delivery O2 Flow Rate FiO2 06/08/16 09:30 Nasal Cannula 2.00 06/08/16 09:02 80 16 163/78 93 Nasal Cannula 2 06/08/16 08:00 79 16 139/62 91 Nasal Cannula 2 06/08/16 06:30 98.9 79 16 138/63 92 Nasal Cannula 2 06/08/16 05:29 92 Nasal Cannula 4.00 06/08/16 04:00 64 16 118/56 91 Nasal Cannula 2 06/08/16 00:00 56 16 120/64 92 Nasal Cannula 2 06/07/16 23:05 18 06/07/16 20:12 98.5 65 18 139/63 98 Nasal Cannula 2 06/07/16 19:15 65 18 96 Nasal Cannula 2 06/07/16 16:30 70 19 131/69 95 Nasal Cannula 2 06/07/16 16:00 62 19 131/69 93 Nasal Cannula 2 06/07/16 13:15 66 18 132/75 94 Room Air 06/07/16 11:42 Nasal Cannula 3.00 06/07/16 06/07/16 06/08/16 15:00 23:00 07:00 Intake Total 400 ml Balance 400 ml Intake Oral 400 ml # Voids 1 # Bowel Movements 0 Result Diagram: 06/08/161 06/08/16 0441 Other Results Laboratory Tests Test 06/07/16 06/07/16 06/07/16 06/07/16 01:35 03:10 06:20 10:00 White Blood Count 12.9 TH/MM3 Red Blood Count 5.11 MIL/MM3 Hemoglobin 15.5 GM/DL Hematocrit 46.6 % Mean Corpuscular Volume 91.1 FL Mean Corpuscular Hemoglobin 30.4 PG Mean Corpuscular Hemoglobin 33.4 % Concent Red Cell Distribution Width 13.7 % Platelet Count 142 TH/MM3 Mean Platelet Volume 8.9 FL Neutrophils (%) (Auto) 77.8 % Lymphocytes (%) (Auto) 9.6 % Monocytes (%) (Auto) 11.7 % Eosinophils (%) (Auto) 0.3 % Basophils (%) (Auto) 0.6 % Neutrophils # (Auto) 10.0 TH/MM3 Lymphocytes # (Auto) 1.2 TH/MM3 Monocytes # (Auto) 1.5 TH/MM3 Eosinophils # (Auto) 0.0 TH/MM3 Basophils # (Auto) 0.1 TH/MM3 CBC Comment DIFF FINAL Differential Comment Prothrombin Time 10.7 SEC Prothromb Time International 1.0 RATIO Ratio Activated Partial 27.5 SEC GREATER THAN Thromboplast Time 153.4 SEC Sodium Level 140 MEQ/L Potassium Level 4.1 MEQ/L Chloride Level 108 MEQ/L Carbon Dioxide Level 26.4 MEQ/L Anion Gap 6 MEQ/L Blood Urea Nitrogen 27 MG/DL Creatinine 1.45 MG/DL Estimat Glomerular Filtration 49 ML/MIN Rate Random Glucose 130 MG/DL Calcium Level 8.9 MG/DL Magnesium Level 2.1 MG/DL Total Creatine Kinase 254 U/L 190 U/L Creatine Kinase MB 3.1 NG/ML Troponin I LESS THAN 0.02 LESS THAN 0.02 NG/ML NG/ML B-Type Natriuretic Peptide 26 PG/ML Lipase 158 U/L Lactic Acid Level 1.7 mmol/L Test 06/07/16 06/07/16 06/07/16 06/08/16 12:22 13:45 20:05 02:10 Total Creatine Kinase 163 U/L Troponin I LESS THAN 0.02 NG/ML Activated Partial 25.7 SEC 28.0 SEC GREATER THAN Thromboplast Time 153.4 SEC D-Dimer Quantitative (PE/DVT) 1.19 MG/L FEU Test 06/08/16 06/08/16 04:23 04:41 Activated Partial 30.1 SEC Thromboplast Time White Blood Count 9.3 TH/MM3 Red Blood Count 4.79 MIL/MM3 Hemoglobin 14.9 GM/DL Hematocrit 44.7 % Mean Corpuscular Volume 93.4 FL Mean Corpuscular Hemoglobin 31.0 PG Mean Corpuscular Hemoglobin 33.2 % Concent Red Cell Distribution Width 13.7 % Platelet Count 156 TH/MM3 Mean Platelet Volume 9.0 FL Neutrophils (%) (Auto) 84.8 % Lymphocytes (%) (Auto) 13.6 % Monocytes (%) (Auto) 1.3 % Eosinophils (%) (Auto) 0.0 % Basophils (%) (Auto) 0.3 % Neutrophils # (Auto) 7.9 TH/MM3 Lymphocytes # (Auto) 1.3 TH/MM3 Monocytes # (Auto) 0.1 TH/MM3 Eosinophils # (Auto) 0.0 TH/MM3 Basophils # (Auto) 0.0 TH/MM3 CBC Comment DIFF FINAL Differential Comment Sodium Level 141 MEQ/L Potassium Level 4.3 MEQ/L Chloride Level 107 MEQ/L Carbon Dioxide Level 23.4 MEQ/L Anion Gap 11 MEQ/L Blood Urea Nitrogen 20 MG/DL Creatinine 1.40 MG/DL Estimat Glomerular Filtration 51 ML/MIN Rate Random Glucose 223 MG/DL Calcium Level 8.6 MG/DL Imaging Last Impressions CT Angiography 06/07/16 0233 Signed Impressions: Service Date/Time: Tuesday, June 07, 2016 02:49 - CONCLUSION: 1. Minimal filling defect right lower lobe consistent with small pulmonary embolus. 2. Bibasilar and lingular scattered patchy opacities. 3. Coronary artery calcifications. Efren Austin MD Chest X-Ray 06/07/16 0143 Signed Impressions: Service Date/Time: Tuesday, June 07, 2016 01:58 - CONCLUSION: No acute disease. Efren Austin MD Objective Remarks General: NAD, AAOx3 Chest: CTA bilaterally Cardiac: Regular Abd: +BS, soft ND/NT Ext: No edema A/P Problem List: (1) Pulmonary embolism Status: Acute Plan: - Pt admitted with worsening pleuritic left sided chest pain for the last 2-3 days. - CTA (06/07) --> Minimal filling defect right lower lobe consistent with small pulmonary embolus. Bibasilar and lingular scattered patchy opacities. Coronary artery calcifications. - Etiology/specificity unclear. No hx of malignancy. No recent weight loss or other constitutional symptoms. - Pt has been started on Heparin gtt per protocol - He has been weaned down to 2L via NC - LE Dollar US was negative - Check 2D echo is pending. - Appreciate Pulmonary consultation and difficult to say if this pulmonary embolism is real but his D. dimer is slightly elevated at 1.19. - Pt was started on Levaquin and Solu-Medrol and pleuritic chest pain has resolved today - Try to wean down O2 - IS - Pt will likely need to be started on anticoagulation - Supportive care - DVT prophylaxis (2) HTN (hypertension) Status: Chronic Plan: - Cont. home meds (3) CKD (chronic kidney disease) stage 3, GFR 30-59 ml/min Status: Chronic Plan: - Slightly worse than baseline - IVF - Encourage oral intake - Recheck in AM (4) Pre-diabetes Status: Chronic Plan: - NovoLog SSI - Accu checks (5) Hyperlipidemia Status: Chronic Assessment and Plan Patient examined. Assessment and plan formulated with Viry Quinteros PA-C. I agree with the above. pt with left lung pna/pleurisy. small right lung filling defect/PE which seems incidental. await pulmonary recc for ?anticoagulation. If yes then plan for eliquis. will plan to d/c on abx/steroid taper. IS> Problem Qualifiers (1) Pulmonary embolism: Qualified Code: I26.99 - Other acute pulmonary embolism without acute cor pulmonale Viry Quinteros Jun 08, 2016 10:53 Lauri Madsen MD Jun 08, 2016 15:54
[2016-06-08 12:36] LABS: APTT (PATIENT) 36.3 SEC (24.3-30.1)
--- NOTE | 2016-06-08 14:25 | EC ---
Study Study Date:06/08/2016 STUDY CONCLUSIONS SUMMARY - Left ventricle: The cavity size was normal. Systolic function was normal. The estimated ejection fraction was in the range of 55% to 60%. Regional wall motion abnormalities cannot be excluded. - Aorta: The aorta was mildly dilated. - Pulmonary arteries: PA peak pressure: 33mm Hg (S). If LV function is below 40, please consider prescribing an ACEI or ARB or document rationale for non-use. PROCEDURE DATA STUDY STATUS: Elective. Procedure: Transthoracic echocardiography. Image quality was good. Scanning was performed from the parasternal, apical, and subcostal acoustic windows. Study completion: The patient tolerated the procedure well. Transthoracic echocardiography. M-mode, complete 2D, complete spectral Doppler, and color Doppler. Patient status: Inpatient. CARDIAC ANATOMY LEFT VENTRICLE: The cavity size was normal. Systolic function was normal. The estimated ejection fraction was in the range of 55% to 60%. Regional wall motion abnormalities cannot be excluded. AORTIC VALVE: The valve appears to be grossly normal. Doppler: There was no stenosis. No significant regurgitation. AORTA: The aorta was mildly dilated. Ascending aorta measures 4.09 cm. MITRAL VALVE: The valve appears to be grossly normal. Doppler: There was no evidence for stenosis. No significant regurgitation. Peak gradient: 3mm Hg (D). LEFT ATRIUM: The atrium was normal in size. RIGHT VENTRICLE: The cavity size was at the upper limits of normal. PULMONIC VALVE: Not well visualized. Doppler: There was no evidence for stenosis. No significant regurgitation. TRICUSPID VALVE: The valve appears to be grossly normal. Doppler: There was no evidence for stenosis. No significant regurgitation. PERICARDIUM: There was no pericardial effusion. BASIC MEASUREMENTS ADULT NORMAL Left ventricle LV internal dimension, ED, chordal level, 45.5 mm 43-52 PLAX LV posterior wall thickness, ED 9.11 mm IVS/LVPW ratio, ED 1.1 <1.3 Ventricular septum Septal thickness, ED 9.98 mm Left atrium Anterior-posterior dimension 36 mm Right ventricle RV internal dimension, ED, PLAX 26.6 mm 19-38 DOPPLER MEASUREMENTS ADULT NORMAL Main pulmonary artery Pressure, S *33 mm Hg =30 Mitral valve Peak E-wave velocity 87.9 cm/s Peak A-wave velocity 76.5 cm/s Peak gradient, D 3 mm Hg Peak E/A ratio 1.1 Tricuspid valve Regurgitant peak velocity 239 cm/s Peak RV-RA gradient, S 23 mm Hg Maximal regurgitant velocity 239 cm/s Systemic veins Estimated CVP 10 mm Hg Right ventricle RV pressure, S *33 mm Hg <30 LEGEND: Mean values are shown as u=mean value. Asterisk (*) pedraza values outside specified normal range. Prepared and signed by Declan Allen [id number]
[2016-06-08 19:02] LABS: APTT (PATIENT) 37.1 SEC (24.3-30.1)
--- NOTE | 2016-06-08 19:15 | HHI.PR ---
Subjective Remarks 66 YOWM with Bibasilar infilt, CP, small PE CP better D-Dimer elevated No fever Objective Vital Signs Vital Signs Date Time Temp Pulse Resp B/P Pulse Ox O2 Delivery O2 Flow Rate FiO2 06/08/16 19:07 85 16 151/70 92 Room Air 06/08/16 14:56 85 16 148/72 92 Room Air 06/08/16 12:02 80 16 175/82 92 Room Air 06/08/16 09:30 Nasal Cannula 2.00 06/08/16 09:02 80 16 163/78 93 Nasal Cannula 2 06/08/16 08:00 79 16 139/62 91 Nasal Cannula 2 06/08/16 06:30 98.9 79 16 138/63 92 Nasal Cannula 2 06/08/16 05:29 92 Nasal Cannula 4.00 06/08/16 04:00 64 16 118/56 91 Nasal Cannula 2 06/08/16 00:00 56 16 120/64 92 Nasal Cannula 2 06/07/16 23:05 18 06/07/16 20:12 98.5 65 18 139/63 98 Nasal Cannula 2 06/07/16 19:15 65 18 96 Nasal Cannula 2 I/O 06/07/16 06/07/16 06/07/16 06/08/16 06/08/16 06/08/16 07:00 15:00 23:00 07:00 15:00 23:00 Intake Total 400 ml Balance 400 ml Intake Oral 400 ml # Voids 1 # Bowel Movements 0 Result Diagram: 06/08/1644006/08/16440 Objective Remarks GENERAL: WBWN WM ,NAD SKIN: Warm and dry. HEAD: Normocephalic. EYES: No scleral icterus. No injection or drainage. NECK: Supple, trachea midline. No JVD or lymphadenopathy. CARDIOVASCULAR: Regular rate and rhythm without murmurs, gallops, or rubs. RESPIRATORY: Breath sounds equal bilaterally. No accessory muscle use. GASTROINTESTINAL: Abdomen soft, non-tender, nondistended. MUSCULOSKELETAL: No cyanosis, or edema. BACK: Nontender without obvious deformity. No CVA tenderness. A/P Assessment and Plan Small Pulm Embolism Bibasilar infilt Pleuritic CP ALEJANDRO CKD PLAN: DW Pt will need anticoagulation for 6 months DW Pt benefits and riska of blood thinner Also discussed choice of Coumadin and NOAC He prefers to go with NOAC Will DC heparin Start Xarelto 15 mg bid for 21 days and then 20 mg daily Agustin Nolan MD Jun 08, 2016 19:15
[2016-06-08] MEDS: RIVAROXABAN 15 MG TAB PO SCH (20:14)
[2016-06-08] MEDS: predniSONE 20 MG TAB PO SCH (20:14)
[2016-06-08] MEDS: LEVOFLOXACIN 500 MG PREMIX INJ 100 ML IV SCH (20:15)
[2016-06-09] VITALS (8 sets, daily range): BP systolic 105–152; BP diastolic 4–84; PULSE 64–79; RESP 16–18; TEMP 97.8–98.5; O2SAT 95–98
[2016-06-09 06:41] LABS: APTT (PATIENT) 28.2 SEC (24.3-30.1)
[2016-06-09] MEDS: predniSONE 20 MG TAB PO SCH (08:28)
[2016-06-09] MEDS: ATENOLOL 50 MG TAB PO SCH (08:28)
[2016-06-09] MEDS: RIVAROXABAN 15 MG TAB PO SCH (08:28)
[2016-06-09] MEDS: LISINOPRIL 10 MG TAB PO SCH (08:28)
[2016-06-09] MEDS: SODIUM CHLORIDE 0.9% FLUSH 5 ML FLUSH IVF SCH (08:31)
--- NOTE | 2016-06-09 08:48 | HHI.PR ---
Subjective Remarks doing great.wants to go home Objective Vitals heart reg lung cta abd s/nt ext no edema Vital Signs Date Time Temp Pulse Resp B/P Pulse Ox O2 Delivery O2 Flow Rate FiO2 06/09/16 06:41 66 06/09/16 05:00 74 06/09/16 04:00 72 06/09/16 03:00 79 06/09/16 03:00 98.5 79 16 105/4 98 06/09/16 02:00 66 06/09/16 01:00 72 06/09/16 00:00 73 06/08/16 23:00 75 06/08/16 23:00 98.2 75 18 139/52 93 06/08/16 22:00 76 06/08/16 19:07 85 16 151/70 92 Room Air 06/08/16 19:00 87 06/08/16 19:00 98.2 87 18 144/72 94 06/08/16 14:56 85 16 148/72 92 Room Air 06/08/16 12:02 80 16 175/82 92 Room Air 06/08/16 09:30 Nasal Cannula 2.00 06/08/16 09:02 80 16 163/78 93 Nasal Cannula 2 06/08/16 06/08/16 06/09/16 15:00 23:00 07:00 Intake Total 1460 ml Balance 1460 ml Intake Oral 460 ml IV Total 1000 ml # Voids 3 Result Diagram: 06/08/16 0441 06/08/16 [address] Angiography 06/07/16 0233 Signed Impressions: Service Date/Time: Tuesday, June 07, 2016 02:49 - CONCLUSION: 1. Minimal filling defect right lower lobe consistent with small pulmonary embolus. 2. Bibasilar and lingular scattered patchy opacities. 3. Coronary artery calcifications. Efren Austin MD Chest X-Ray 06/07/16 0143 Signed Impressions: Service Date/Time: Tuesday, June 07, 2016 01:58 - CONCLUSION: No acute disease. Efren Austin MD A/P Problem List: (1) Pulmonary embolism Status: Acute Plan: - Pt admitted with worsening pleuritic left sided chest pain for the last 2-3 days. - CTA (06/07) --> Minimal filling defect right lower lobe consistent with small pulmonary embolus. Bibasilar and lingular scattered patchy opacities. Coronary artery calcifications. Pt has left lung pna and atelectasis. pleuritic pain. small right lung pe...incidental finding. discussed with pulmonary d/c home on levaquin, prednisone taper, inc spirometer, xarelto x 6m . pcp f/u. (2) HTN (hypertension) Status: Chronic Plan: - Cont. home meds (3) CKD (chronic kidney disease) stage 3, GFR 30-59 ml/min Status: Chronic Plan: -improved with ivf (4) Pre-diabetes Status: Chronic Plan: - NovoLog SSI - Accu checks (5) Hyperlipidemia Status: Chronic Problem Qualifiers (1) Pulmonary embolism: Qualified Code: I26.99 - Other acute pulmonary embolism without acute cor pulmonale Lauri Madsen MD Jun 09, 2016 08:48
[2016-06-09] MEDS ORDERED: PRED10 PO (08:50)
[2016-06-09] MEDS ORDERED: LEVA500T PO (08:50)
--- NOTE | 2016-06-09 08:51 | HHI.DCPOC ---
Discharge Care Plan Diagnosis: (1) Pneumonia (2) Atelectasis (3) Pleurisy (4) Pulmonary embolism (5) HTN (hypertension) Goals to Promote Your Health * To prevent worsening of your condition and complications * To maintain your health at the optimal level Directions to Meet Your Goals Take your medications as prescribed Follow your dietary instruction Follow activity as directed Keep your appointments as scheduled Take your immunizations and boosters as scheduled If your symptoms worsen call your PCP, if no PCP go to Urgent Care Center or Emergency Room Smoking is Dangerous to Your Health. Avoid second hand smoke Call the 24-hour hour crisis hotline for domestic abuse at Lauri Madsen MD Jun 09, 2016 08:51
[2016-06-09] MEDS ORDERED: ATEN50TA PO (08:52)
[2016-06-09] MEDS ORDERED: PNEUMOCOCCAL POLYVALENT INJ 25 MCG/0.5 ML SYR IM ONE (10:00)
[2016-06-10] MEDS ORDERED: XARE15TA PO (11:27)
== END 2016-06-09 09:22 | disposition home or self-care (01) | DRG 175 ==
LOC: NEPC 01:24 → NEDA 03:44 → NEDH 21:58 → HCIN 06-08 19:32
PROVIDERS: ADMIT Hospitalist; ATTEND Hospitalist
DX: I26.99 Other pulmonary embolism without acute cor pulmonale (principal); J18.9 Pneumonia, unspecified organism; N18.3 Chronic kidney disease, stage 3 (moderate); J98.11 Atelectasis; G62.9 Polyneuropathy, unspecified; I12.9 Hypertensive chronic kidney disease with stage 1 through stage 4 chronic kidney disease, or unspecified chronic kidney disease; E78.5 Hyperlipidemia, unspecified; I25.10 Atherosclerotic heart disease of native coronary artery without angina pectoris; R73.03 Prediabetes; K21.9 Gastro-esophageal reflux disease without esophagitis; G47.33 Obstructive sleep apnea (adult) (pediatric); R09.1 Pleurisy; Z85.828 Personal history of other malignant neoplasm of skin
CPT/HCPCS: 71010; 71020; 71275; 80048; 80053; 82550; 82552; 83605; 83690; 83735; 83880; 84484; 85025; 85379; 85610; 85730; 87040; 90732; 93005; 93306; 93970; 94150; 96374; 96375; C9113; J1644; J1885; J1956; J2270; J2405; J2930; J7030; J7040; J7512; Q9967

== ENCOUNTER 2017-09-14 19:04 | Observation (INO) | payer OTHER ==
[~2017-09-14] VITALS: Ht 188 cm; Wt 111.2 kg
[~2017-09-14 19:04] MED LIST changes: -IBUP800T23 PO; +LEVA500T PO; +PRED10 PO; +XARE15TA PO; -ZITH500T PO
[2017-09-14 19:16] VITALS: BP 143/65; PULSE 63; RESP 18; TEMP 99.3; O2SAT 97
[2017-09-14 21:07] VITALS: BP 144/70; PULSE 60; RESP 18; O2SAT 95
[2017-09-14] MEDS ORDERED: VITA500T4 PO (21:15)
[2017-09-14] MEDS ORDERED: COQ-30CA2 PO (21:15)
[2017-09-14] MEDS ORDERED: MULTTAB67 PO (21:15)
[2017-09-14] MEDS ORDERED: MORPHINE SULFATE 2 MG/ML SYRINGE IV PUSH ONE (21:15)
[2017-09-14] MEDS ORDERED: VITA1000 PO (21:15)
[2017-09-14] MEDS ORDERED: SODIUM CHLORIDE 0.9% FLUSH 10 ML FLUSH IVF PRN (21:15)
[2017-09-14] MEDS ORDERED: GABA600T PO (21:15)
[2017-09-14] MEDS ORDERED: SODIUM CHLOR 0.9% 1000 ML INJ 1,000 ML IV ONE (21:15)
[2017-09-14] MEDS ORDERED: SIMV20TA PO (21:15)
[2017-09-14] MEDS ORDERED: ASPI-516 CHEW (21:15)
--- NOTE | 2017-09-14 21:23 | PD ---
HPI Chief Complaint: Flank/Kidney Pain Time Seen by Provider: 21:05 Travel History International Travel<30 days: No Contact w/Intl Traveler<30days: No Traveled to known affect area: No History of Present Illness HPI Patient is a 67-year-old male with history of hyperlipidemia, diabetes, CKD stage III, GERD, as well as pulmonary embolism (diagnosed May 2016) who presents the emergency room with complaints of left-sided lower rib/chest pain. Patient reports that he has been having rib pain which is been ongoing for the past few days. Patient reports that he has suffered no trauma -reports that he has been in so much pain, he has been unable to sleep at night. Patient reports that pain is worse with palpation of his chest wall and with movement. Patient reports that his pain is exacerbated with taking a deep breath. Patient denies any chest pain or shortness of breath at this time, reports that he does have history of a pulmonary embolism, he was on Xarelto in the past but his primary care doctor took him off his medication after 6 months of treatment for his pulmonary embolism. Patient denies any recent travels or trip. Patient denies any cough or congestion, patient denies any flank pain. Denies dysuria/hematuria, urinary urgency/frequency. No fever/chills, no other complaints. 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) Neurologic: Yes Psychiatric: No Reproductive: No Respiratory: No Pneumonia: Yes Radiation Therapy: No Renal Failure: No Sleep Apnea: Yes Ulcer: No ?: Not Past Surgical History Abdominal Surgery: Yes (appendectomy) AICD: No Appendectomy: Yes Arteriovenous Shunt: No Insulin Pump: No Joint Replacement: No Oral Surgery: Yes Pacemaker: No Other Surgery: Yes Social History Alcohol Use: Yes Tobacco Use: No Substance Use: No Allergies-Medications (Allergen,Severity, Reaction): Coded Allergies: amoxicillin (Verified Adverse Reaction, Mild, DIARRHEA, 09/14/17) clavulanic acid (Verified Adverse Reaction, Mild, DIARRHEA, 09/14/17) Reported Meds & Prescriptions Reported Meds & Active Scripts Active Atenolol 50 Mg Tab 50 Mg PO DAILY Reported Vitamin D-1000 (Cholecalciferol) 1,000 Unit Tab 1,000 Units PO DAILY Vitamin B-12 (Cyanocobalamin) 500 Mcg Tab 500 Mcg PO DAILY Multiple Vitamin 1 Tab 1 Tab PO DAILY Coq-10 (Coenzyme Q10 (Ubidecarenone)) 30 Mg Cap 1 Cap PO DAILY Simvastatin 20 Mg Tab 20 Mg PO DAILY Aspirin 81 Mg Chew 81 Mg CHEW DAILY Gabapentin 600 Mg Tab 600 Mg PO BID Zestril (Lisinopril) 10 Mg Tab 10 Mg PO DAILY Review of Systems General / Constitutional: No: Fever Eyes: No: Visual changes HENT: No: Headaches Cardiovascular: Positive: Other (left lower rib pain), No: Chest Pain or Discomfort Respiratory: Positive: Shortness of Breath, Other (pleurisy) Gastrointestinal: No: Abdominal Pain Genitourinary: No: Dysuria Musculoskeletal: No: Pain Skin: No Rash Neurologic: No: Weakness Psychiatric: No: Depression Endocrine: No: Polydipsia Hematologic/Lymphatic: No: Easy Bruising Physical Exam Narrative GENERAL: mild distress SKIN: Focused skin assessment warm/dry. HEAD: Atraumatic. Normocephalic. EYES: Pupils equal and round. No scleral icterus. No injection or drainage. ENT: No nasal bleeding or discharge. Mucous membranes pink and moist. NECK: Trachea midline. No JVD. CARDIOVASCULAR: Regular rate and rhythm. No murmur appreciated. Patient with point tenderness to left lower anterior ribs, there is no bruising RESPIRATORY: No accessory muscle use. Clear to auscultation. Breath sounds equal bilaterally. GASTROINTESTINAL: Abdomen soft, non-tender, nondistended. Hepatic and splenic margins not palpable. No flank tenderness MUSCULOSKELETAL: No obvious deformities. No clubbing. No cyanosis. No edema. NEUROLOGICAL: Awake and alert. No obvious cranial nerve deficits. Motor grossly within normal limits. Normal speech. PSYCHIATRIC: Appropriate mood and affect; insight and judgment normal. Data Data Last Documented VS Vital Signs Date Time Temp Pulse Resp B/P (MAP) Pulse Ox O2 Delivery O2 Flow Rate FiO2 09/14/17 23:04 67 18 164/78 (106) 95 Room Air 09/14/17 19:16 99.3 Orders Orders Electrocardiogram (4/19/18 21:13) B-Type Natriuretic Peptide (09/14/17 21:13) Ckmb (Isoenzyme) Profile (09/14/17 21:13) Complete Blood Count With Diff (09/14/17 21:13) Comprehensive Metabolic Panel (09/14/17 21:13) Magnesium (Mg) (09/14/17 21:13) Prothrombin Time / Inr (Pt) (09/14/17 21:13) Act Partial Throm Time (Ptt) (09/14/17 21:13) Troponin I (09/14/17 21:13) Lipase (09/14/17 21:13) Chest, Single Ap (09/14/17 21:13) Ecg Monitoring (09/14/17 21:13) Bilateral Bp Monitoring (09/14/17 21:13) Iv Access Insert/Monitor (09/14/17 21:13) Oximetry (09/14/17 21:13) Sodium Chloride 0.9% Flush (Ns Flush) (09/14/17 21:15) Ct Pulmonary Angiogram (09/14/17 21:13) Sodium Chlor 0.9% 1000 Ml Inj (Ns 1000 M (09/14/17 21:15) Morphine Inj (Morphine Inj) (09/14/17 21:15) CKMB (09/14/17 21:44) CKMB% (09/14/17 21:44) Iohexol 350 Inj (Omnipaque 350 Inj) (09/14/17 22:58) Admit Order (Ed Use Only) (09/14/17 23:30) Labs Laboratory Tests Test 09/14/17 21:44 White Blood Count 7.0 TH/MM3 Red Blood Count 4.91 MIL/MM3 Hemoglobin 15.4 GM/DL Hematocrit 46.2 % Mean Corpuscular Volume 94.0 FL Mean Corpuscular Hemoglobin 31.4 PG Mean Corpuscular Hemoglobin Concent 33.4 % Red Cell Distribution Width 13.0 % Platelet Count 131 TH/MM3 Mean Platelet Volume 8.8 FL Neutrophils (%) (Auto) 69.4 % Lymphocytes (%) (Auto) 19.1 % Monocytes (%) (Auto) 9.4 % Eosinophils (%) (Auto) 0.8 % Basophils (%) (Auto) 1.3 % Neutrophils # (Auto) 4.8 TH/MM3 Lymphocytes # (Auto) 1.3 TH/MM3 Monocytes # (Auto) 0.7 TH/MM3 Eosinophils # (Auto) 0.1 TH/MM3 Basophils # (Auto) 0.1 TH/MM3 CBC Comment DIFF FINAL Differential Comment Prothrombin Time 10.2 SEC Prothromb Time International Ratio 1.0 RATIO Activated Partial Thromboplast Time 25.2 SEC Blood Urea Nitrogen 17 MG/DL Creatinine 1.20 MG/DL Random Glucose 91 MG/DL Total Protein 7.1 GM/DL Albumin 3.7 GM/DL Calcium Level 8.4 MG/DL Magnesium Level 2.3 MG/DL Alkaline Phosphatase 86 U/L Aspartate Amino Transf (AST/SGOT) 25 U/L Alanine Aminotransferase (ALT/SGPT) 33 U/L Total Bilirubin 0.6 MG/DL Sodium Level 139 MEQ/L Potassium Level 4.6 MEQ/L Chloride Level 106 MEQ/L Carbon Dioxide Level 28.4 MEQ/L Anion Gap 5 MEQ/L Estimat Glomerular Filtration Rate 60 ML/MIN Total Creatine Kinase 220 U/L Creatine Kinase MB 2.9 NG/ML Troponin I LESS THAN 0.02 NG/ML B-Type Natriuretic Peptide 45 PG/ML Lipase 137 U/L MDM Medical Decision Making Medical Screen Exam Complete: Yes Emergency Medical Condition: Yes Medical Record Reviewed: Yes Interpretation(s) EKG at 2118: NSR at 61bpm, qt/qtc: 421/425, no acute st or t wave changes Vital Signs Date Time Temp Pulse Resp B/P (MAP) Pulse Ox O2 Delivery O2 Flow Rate FiO2 09/14/17 21:07 60 18 09/14/17 21:07 60 18 144/70 (94) 95 Room Air 09/14/17 19:16 99.3 63 18 143/65 (91) 97 Differential Diagnosis PE, muscle strain, acs, pneumothorax, pneumonia Narrative Course Patient is a 67-year-old male presents the emergency room with complaints of left lower rib pain with pleuritic symptoms which has been ongoing for the past few days. Patient with no chest pain or shortness of breath, complains of exacerbation of pain with taking a deep breath. He does have history of PE in the past, he was on Xarelto for 6 months, currently he is not on Xarelto. Patient unsure why he had a pulmonary embolism in the first place. During the course of the patients emergency department visit, the patients history, examination, and differential diagnosis were reviewed with the patient. The patient was placed on a secured entrance monitor with oximetry and frequent blood pressure monitoring. The patient had an IV access obtained and blood work sent for analysis. The patients laboratory studies were reviewed and remarkable for Laboratory Tests Test 09/14/17 21:44 White Blood Count 7.0 TH/MM3 (4.0-11.0) Red Blood Count 4.91 MIL/MM3 (4.50-5.90) Hemoglobin 15.4 GM/DL (13.0-17.0) Hematocrit 46.2 % (39.0-51.0) Mean Corpuscular Volume 94.0 FL (80.0-100.0) Mean Corpuscular Hemoglobin 31.4 PG (27.0-34.0) Mean Corpuscular Hemoglobin Concent 33.4 % (32.0-36.0) Red Cell Distribution Width 13.0 % (11.6-17.2) Platelet Count 131 TH/MM3 (150-450) Mean Platelet Volume 8.8 FL (7.0-11.0) Neutrophils (%) (Auto) 69.4 % (16.0-70.0) Lymphocytes (%) (Auto) 19.1 % (9.0-44.0) Monocytes (%) (Auto) 9.4 % (0.0-8.0) Eosinophils (%) (Auto) 0.8 % (0.0-4.0) Basophils (%) (Auto) 1.3 % (0.0-2.0) Neutrophils # (Auto) 4.8 TH/MM3 (1.8-7.7) Lymphocytes # (Auto) 1.3 TH/MM3 (1.0-4.8) Monocytes # (Auto) 0.7 TH/MM3 (0-0.9) Eosinophils # (Auto) 0.1 TH/MM3 (0-0.4) Basophils # (Auto) 0.1 TH/MM3 (0-0.2) CBC Comment DIFF FINAL Differential Comment Prothrombin Time 10.2 SEC (9.8-11.6) Prothromb Time International Ratio 1.0 RATIO Activated Partial Thromboplast Time 25.2 SEC (24.3-30.1) Blood Urea Nitrogen 17 MG/DL (7-18) Creatinine 1.20 MG/DL (0.60-1.30) Random Glucose 91 MG/DL (74-106) Total Protein 7.1 GM/DL (6.4-8.2) Albumin 3.7 GM/DL (3.4-5.0) Calcium Level 8.4 MG/DL (8.5-10.1) Magnesium Level 2.3 MG/DL (1.5-2.5) Alkaline Phosphatase 86 U/L (45-117) Aspartate Amino Transf (AST/SGOT) 25 U/L (15-37) Alanine Aminotransferase (ALT/SGPT) 33 U/L (12-78) Total Bilirubin 0.6 MG/DL (0.2-1.0) Sodium Level 139 MEQ/L (136-145) Potassium Level 4.6 MEQ/L (3.5-5.1) Chloride Level 106 MEQ/L (98-107) Carbon Dioxide Level 28.4 MEQ/L (21.0-32.0) Anion Gap 5 MEQ/L (5-15) Estimat Glomerular Filtration Rate 60 ML/MIN (>89) Total Creatine Kinase 220 U/L (39-308) Creatine Kinase MB 2.9 NG/ML (0.5-3.6) Troponin I LESS THAN 0.02 NG/ML B-Type Natriuretic Peptide 45 PG/ML (0-100) Lipase 137 U/L (73-393) Radiology studies were reviewed and remarkable for Last Impressions Chest X-Ray 09/14/172112 Signed Impressions: Service Date/Time: August 21:22 - CONCLUSION: No acute disease. Valente Schulte MD CT Angiography 09/14/172112 Signed Impressions: Service Date/Time: August 22:48 - CONCLUSION: 1. No acute pulmonary emboli. 2. Bibasilar consolidation with mild basilar cylindrical bronchiectasis similar to the prior exam suggesting chronic inflammatory change or chronic aspiration. Pierre Magaña Jr., MD Patient with no evidence of pulmonary emboli, patient does have bibasilar consolidation with bronchiectasis which is similar to his prior exam suggesting chronic inflammatory change or chronic aspiration. Plan to observe patient for chest pain observation as I am unsure etiology of patient's pain. AMA: The risks of leaving against medical advice without further evaluation treatment were discussed with the patient. These risks include cardiac dysfunction, cardiac dysrhythmia, possible heart attack, possible stroke or . The patient indicated understanding of these risks and appeared to have the capacity to make this decision. Diagnosis Primary Impression: chest pain Disposition: 07 AGAINST MEDICAL ADVICE Viry Erwin DO Sep 14, 2017 21:23
[2017-09-14 21:29] VITALS: BP_SYST 146; BP_SYST 165; BP_DIAS 76; BP_DIAS 84; PULSE 62; RESP 18; O2SAT 95
[2017-09-14 21:57] LABS: AUTOMATED NEUTROPHIL # 4.8 TH/MM3 (1.8-7.7); BASOPHIL # 0.1 TH/MM3 (0-0.2); BASOPHIL % 1.3 % (0.0-2.0); EOSINOPHIL # 0.1 TH/MM3 (0-0.4); EOSINOPHIL % 0.8 % (0.0-4.0); HEMATOCRIT 46.2 % (39.0-51.0); HEMOGLOBIN 15.4 GM/DL (13.0-17.0); LYMPH % 19.1 % (9.0-44.0); LYMPHOCYTE # 1.3 TH/MM3 (1.0-4.8); MEAN CORPUSCULAR HEMOGLOBIN 31.4 PG (27.0-34.0); MEAN CORPUSCULAR HGB CONC 33.4 % (32.0-36.0); MEAN PLATELET VOLUME 8.8 FL (7.0-11.0); MONO % 9.4 % (0.0-8.0); MONOCYTE # 0.7 TH/MM3 (0-0.9); NEUT % 69.4 % (16.0-70.0); PLATELET COUNT 131 TH/MM3 (150-450); RED BLOOD COUNT 4.91 MIL/MM3 (4.50-5.90)
--- NOTE | 2017-09-14 22:00 | RADRPT ---
EXAM DATE/TIME: 09/14/2017 21:22 [facility] COMPARISON: CHEST SINGLE AP, June 07, 2016, 1:58. INDICATIONS : Short of breath and left lower quadrant pain. MEDICAL HISTORY : Hypercholesterolemia. Hypertension. Pneumonia. SURGICAL HISTORY : Appendectomy. ENCOUNTER: Initial ACUITY: 1 day PAIN SCORE: 7/10 LOCATION: Bilateral chest FINDINGS: A single view of the chest demonstrates the lungs to be symmetrically aerated without evidence of mas s, infiltrate or effusion. The cardiomediastinal contours are unremarkable. Osseous structures are intact. CONCLUSION: No acute disease. Valente Schulte MD on September 14, 2017 at 21:58 Board Certified Radiologist. This report was verified electronically.
[2017-09-14 22:09] LABS: PROTHROMBIN TIME - PATIENT 10.2 SEC (9.8-11.6)
[2017-09-14 22:19] LABS: CHLORIDE 106 MEQ/L (98-107); SODIUM (NA) 139 MEQ/L (136-145)
[2017-09-14 22:23] LABS: BICARBONATE 28.4 MEQ/L (21.0-32.0); BLOOD UREA NITROGEN 17 MG/DL (7-18); CALCIUM 8.4 MG/DL (8.5-10.1); GLUCOSE,RANDOM 91 MG/DL (74-106); MAGNESIUM 2.3 MG/DL (1.5-2.5)
[2017-09-14 22:24] LABS: ALBUMIN 3.7 GM/DL (3.4-5.0)
[2017-09-14 22:26] LABS: ALT (GPT) 33 U/L (12-78); AST (GOT) 25 U/L (15-37); GLOMERULAR FILTRATION RATE 60 ML/MIN (>89)
[2017-09-14 22:28] LABS: TOTAL BILIRUBIN ADULT 0.6 MG/DL (0.2-1.0); TOTAL PROTEIN 7.1 GM/DL (6.4-8.2)
[2017-09-14 22:29] LABS: ALKALINE PHOSPHATASE 86 U/L (45-117)
[2017-09-14 22:31] LABS: TROPONIN I LESS THAN 0.02 NG/ML (0.02-0.05)
[2017-09-14] MEDS ORDERED: IOHEXOL 350 MG/ML 10 ML VIAL (for RAD DIAG) IVCONTRAST ONE (22:58)
[2017-09-14 23:04] VITALS: BP 164/78; PULSE 67; RESP 18; O2SAT 95
--- NOTE | 2017-09-14 23:09 | RADRPT ---
EXAM DATE/TIME: 09/14/2017 22:48 [facility] COMPARISON: CT PULMONARY ANGIOGRAM, June 07, 2016, 2:49. INDICATIONS : Left sided chest pain. History of right sided pulmonary embolism. IV CONTRAST: 75 cc Omnipaque 350 (iohexol) IV RADIATION DOSE: 21.39 CTDIvol (mGy) MEDICAL HISTORY : Hypertension. Pulmonary embolism. Skin cancer. SURGICAL HISTORY : Appendectomy. ENCOUNTER: Initial ACUITY: 3 days PAIN SCALE: 7/10 LOCATION: Left chest TECHNIQUE: Volumetric scanning of the chest was performed using a pulmonary embolism protocol MIP images were re constructed. Using automated exposure control and adjustment of the mA and/or kV according to patien t size, radiation dose was kept as low as reasonably achievable to obtain optimal diagnostic quality images. DICOM format image data is available electronically for review and comparison. Follow-up recommendations for detected pulmonary nodules are based at a minimum on nodule size and pa tient risk factors according to Fleischner Society Guidelines. FINDINGS: PULMONARY ARTERIES: No filling defects are seen in the pulmonary arteries through the segmental level. LUNGS: Bibasilar areas of consolidation similar to the prior study with mild cylindrical bronchiectasis the appearance is stable from the prior exam. No acute infiltrate. PLEURAE: There is no pleural thickening or pleural effusion. MEDIASTINUM: The heart is normal in size. No pericardial effusion. Coronary artery atherosclerotic calcifications. Aorta is normal in caliber. No mass or adenopathy. MUSCULOSKELETAL: Within normal limits for patient age. MISCELLANEOUS: The visualized upper abdominal organs demonstrate no acute abnormality. CONCLUSION: 1. No acute pulmonary emboli. 2. Bibasilar consolidation with mild basilar cylindrical bronchiectasis similar to the prior exam sug gesting chronic inflammatory change or chronic aspiration. Pierre Magaña Jr., MD on September 14, 2017 at 23:04 Board Certified Radiologist. This report was verified electronically.
[2017-09-15 00:39] VITALS: BP 165/74
--- NOTE | 2017-09-16 09:07 | EKG ---
Date Performed: 09/14/2017 Time Performed: 21:19:29 PTAGE: 67 years EKG: Sinus rhythm ABNORMAL ECG PREVIOUS TRACING : 06/07/2016 06.04 DOCTOR: Charli Flor Interpretating Date/Time 09/16/2017 09:05:12
== END 2017-09-15 00:37 | disposition left against medical advice (07) ==
LOC: PHED 19:04 → PHEDA 23:31
PROVIDERS: ADMIT Hospitalist; ATTEND Hospitalist
DX: R07.89 Other chest pain (principal); R94.31 Abnormal electrocardiogram [ECG] [EKG]; R10.32 Left lower quadrant pain; I12.9 Hypertensive chronic kidney disease with stage 1 through stage 4 chronic kidney disease, or unspecified chronic kidney disease; N18.3 Chronic kidney disease, stage 3 (moderate); E78.00 Pure hypercholesterolemia, unspecified; E11.22 Type 2 diabetes mellitus with diabetic chronic kidney disease; E11.40 Type 2 diabetes mellitus with diabetic neuropathy, unspecified; K21.9 Gastro-esophageal reflux disease without esophagitis; G47.30 Sleep apnea, unspecified; Z86.711 Personal history of pulmonary embolism; Z85.828 Personal history of other malignant neoplasm of skin; Z79.899 Other long term (current) drug therapy; Z79.82 Long term (current) use of aspirin
CPT/HCPCS: 71045; 71275; 80053; 82550; 82552; 83690; 83735; 83880; 84484; 85025; 85610; 85730; 93005; 96361; 96374; 99285; G0378; J2270; J7030; Q9967